=== PATIENT | female | born 1985 | race Caucasian/White ===

== ENCOUNTER 2016-06-20 20:52 | Emergency (ER) | payer OTHER, SELFPAY ==
--- NOTE | 2016-06-23 14:54 | ER ---
ADMIT: 06/20/2016 RM/LOC: ER [facility] MR#: [id number] [address] JASMINA SERRANOLI Mary Beth [address] [place] [address] Emergency Room Report SEX: F AGE: 30 : 1985 DATE: 06/20/2016 The patient is a 30-year-old who missed work today. She stated that she is having dizziness and lightheadedness for a couple of days now. Denies any cough, nausea, or vomiting. She says she walks without assistance, drove herself over. She says but the movement of the head is what causes her to get dizzy. She has a small child with her. No surgeries. ALLERGIES: TO PENICILLIN AND MACROBID. PHYSICAL EXAMINATION: HEENT: Her right tympanic membrane is dull and some fluid is present. RESPIRATIONS: No distress. CARDIOVASCULAR: Regular in rate and rhythm. ABDOMEN: Nontender. NEURO: Motor and sensation intact. Cranial nerves II through XII intact. Normal speech. CLINICAL IMPRESSION: Right otitis media with eustachian tube dysfunction and dizziness. I counseled the patient regarding medication azithromycin prescription and meclizine, 2 tablets to sent home for use later as she is driving home. She says she lives close by. I encouraged to hydrate due to meclizine making the oral mucosa pretty dry. Follow up with PCP for further care, given [facility]. JEFF Shepard / Sharif Solis MD / karliel JOB #: [id number] CC: Sharif Solis MD, Attending Physician
== END 2016-06-20 22:00 | disposition home or self-care (01) ==
LOC: ER 20:52
DX: H66.91 Otitis media, unspecified, right ear (principal); H69.91 Unspecified Eustachian tube disorder, right ear; Z88.0 Allergy status to penicillin; Z88.1 Allergy status to other antibiotic agents

== ENCOUNTER 2016-07-10 18:39 | Emergency (ER) | payer OTHER, SELFPAY ==
--- NOTE | 2016-07-17 13:52 | ER ---
ADMIT: 07/10/2016 RM/LOC: ER [facility] MR#: [id number] [address] JOHN SERRANO Susanna S [facility] [address] Emergency Room Report SEX: F AGE: 31 : 1985 DATE: 07/10/2016 ADDENDUM: CHIEF COMPLAINT: Dysuria. HISTORY OF PRESENT ILLNESS: This is a 31-year-old female who has a history of herpes, but she did not know if this was an outbreak of herpes or if she actually had UTI. COURSE IN THE EMERGENCY ROOM: Urine and urine preg test was done. test was negative. Her urine is normal. I did examine her genital area and does seem to be other outbreak of herpes. I am sending her home with acyclovir. Having her followup if worsen. JEFF Ruiz / Sharif Solis MD / mani JOB #: [id number] CC: Lorenzo Way MD, Attending Physician UNKNOWN, Family Physician
== END 2016-07-10 20:20 | disposition home or self-care (01) ==
LOC: ER 18:39
DX: A60.00 Herpesviral infection of urogenital system, unspecified (principal); Z88.0 Allergy status to penicillin; Z88.8 Allergy status to other drugs, medicaments and biological substances

== ENCOUNTER 2016-07-29 18:11 | Emergency (ER) | payer OTHER, SELFPAY | END 2016-07-29 19:06 | disposition home or self-care (01) | DX: S61.011A Laceration without foreign body of right thumb without damage to nail, initial encounter (principal); Z88.0 Allergy status to penicillin; X58.XXXA Exposure to other specified factors, initial encounter ==